=== PATIENT | female | born 2000 | race Caucasian/White ===

== ENCOUNTER 2019-01-08 00:53 | Emergency (ER) | payer OTHER ==
--- NOTE | 2019-01-08 02:32 | XRAY Report ---
Reason: foosh Procedure Date: 01/08/2019 Accession Number: [id number] / [id number] Procedure: XR - Wrist 4 View RT CPT Code: FULL RESULT: EXAM: RIGHT WRIST RADIOGRAPHY EXAM DATE: 01/08/2019 02:19 AM. CLINICAL HISTORY: COMPARISON: None. TECHNIQUE: 3 views. FINDINGS: Bones: Normal. No fractures or bone lesions. Joints: Normal. No subluxations. Soft Tissues: Normal. No soft tissue swelling. IMPRESSION: Normal wrist radiography. [facility]
--- NOTE | 2019-01-08 02:52 | ED Physician Documentation ---
PD HPI UPPER EXT INJURY - Stated complaint Stated Complaint: GLF/R WRIST PX - Chief complaint Chief Complaint: Ext Problem - History obtained from History obtained from: Patient - History of Present Illness Location: Right, Wrist Type of injury: Fall Where injury occurred: Home Timing - onset: Today Timing - duration: Minutes Timing - details: Abrupt onset, Still present Improved by: Rest, Immobilization Worsened by: Moving, Palpating Associated symptoms: No: Weakness, Numbness, Swelling Contributing factors: No: Anticoagulated Similar symptoms before: Has not had sx before Recently seen: Not recently seen - Additonal information Additional information: 18 y/o female has fallen onto her right hand after slipping in the snow. She is complaining of pain in the wrist over the dorsal surface. She has good ROM of the wrist with pain. Review of Systems Constitutional: denies: Fever Respiratory: denies: Cough GI: denies: Vomiting Skin: denies: Rash Musculoskeletal: reports: Extremity pain, Joint pain PD PAST MEDICAL HISTORY - Past Medical History Past Medical History: No - Past Surgical History Past Surgical History: No - Present Medications Home Medications: Ambulatory Orders Medication Instructions Recorded Confirmed No Known Home Medications 01/08/19 01/08/19 - Allergies Allergies/Adverse Reactions: Allergies Allergy/AdvReac Type Severity Reaction Status Date / Time No Known Drug Allergies Allergy Verified 01/08/19 01:09 - Social History Does the pt smoke?: No Smoking Status: Never smoker Does the pt drink ETOH?: No Does the pt have substance abuse?: No - Immunizations Immunizations are current?: Yes - POLST Patient has POLST: No PD ED PE NORMAL - Vitals Vital signs reviewed: Yes (hypertensive) - General General: Alert and oriented X 3, No acute distress, Well developed/nourished - HEENT HEENT: Atraumatic, PERRL, EOMI - Respiratory Respiratory: No respiratory distress - Derm Derm: Normal color, Warm and dry, No rash - Extremities Extremities: No deformity, No edema, Other (There is tenderness to the dorsal aspect of the right wrist. There is not tenderness to the anatomic snuff box. There is fair ROM with pain and the distal n/v is intact. ) - Neuro Neuro: Alert and oriented X 3, poultry helper 2-12 intact, No motor deficit, No sensory deficit, Normal speech Eye Opening: Spontaneous Motor: Obeys Commands Verbal: Oriented GCS Score: 15 - Psych Psych: Normal mood, Normal affect Results - Vitals Vitals: Vital Signs - 24 hr 01/08/19 01/08/19 01:00 02:57 Temperature 36.4 C L 36.4 C L Heart Rate 81 77 Respiratory 18 14 Rate Blood Pressure 130/81 H 115/72 O2 Saturation 100 100 Oxygen O2 Source Room air - Rads (name of study) wrist Radiology: Prelim report reviewed (Impression: Normal wrist radiography.), EMP read indepedently, See rad report Procedures - Splint (location) right wrist Splint applied by: Tech Type of splint: Fiberglass, Volar cock up Other: Patient tolerated well, No complications, Neurovascular intact, Good alignment PD MEDICAL DECISION MAKING - ED course Complexity details: reviewed results, re-evaluated patient, considered differential, d/w patient, d/w family ED course: 18-year-old female with a fall on an outstretched hand has a negative x-ray she is diagnosed with a sprain placed into a splint. She is instructed to wear the splint from anywhere from 2 days to 2 weeks Departure - Departure Disposition: 01 Home, Self Care Clinical Impression: Right wrist sprain Qualifiers: Encounter type: initial encounter Qualified Code(s): S63.501A - Unspecified sprain of right wrist, initial encounter Condition: Stable Instructions: ED Sprain Wrist Follow-Up: [facility] Fernandez [Provider Group] Discharge Date/Time: 01/08/19 03:01
[2019-01-08 02:58] VITALS: BP 115/72
== END 2019-01-08 03:01 | disposition home or self-care (01) ==
LOC: ED 00:53
DX: S63.501A Unspecified sprain of right wrist, initial encounter (principal); W00.0XXA Fall on same level due to ice and snow, initial encounter; Y92.009 Unspecified place in unspecified non-institutional (private) residence as the place of occurrence of the external cause
CPT/HCPCS: 99283

== ENCOUNTER 2019-03-07 18:00 | Emergency (ER) | payer OTHER ==
[2019-03-07 18:08] VITALS: BP 134/75
[2019-03-07] MEDS ORDERED: AMOXICILLIN 250 MG CAPSULE PO STA (18:48)
[2019-03-07] MEDS ORDERED: CHERRY SYRUP 10 ML UDC PO ONE (18:48)
[2019-03-07] MEDS ORDERED: DEXAMETHASONE 10 MG/ML VIAL PO STA (18:48)
--- NOTE | 2019-03-07 18:50 | ED Physician Documentation ---
History of Present Illness - Stated complaint Stated Complaint: SORE THROAT/L EAR PX - Chief complaint Chief Complaint: General - History obtained from History obtained from: Patient - History of Present Illness Timing: Other (5 days of severe left ear pain and popping, 2 days of sore throat. She has had some low-grade fevers. She is congested but denies cough. No possibility of .) Review of Systems Constitutional: reports: Fever. denies: Chills, Myalgias, Fatigue Ears: reports: Loss of hearing, Ear pain Nose: reports: Rhinorrhea / runny nose Throat: reports: Sore throat PD PAST MEDICAL HISTORY - Past Surgical History Past Surgical History: No - Present Medications Home Medications: Ambulatory Orders Medication Instructions Recorded Confirmed Amoxicillin 500 mg PO TID #30 capsule 03/07/19 - Allergies Allergies/Adverse Reactions: Allergies Allergy/AdvReac Type Severity Reaction Status Date / Time No Known Drug Allergies Allergy Verified 01/08/19 01:09 - Social History Does the pt smoke?: No Smoking Status: Never smoker Does the pt drink ETOH?: No Does the pt have substance abuse?: No - Immunizations Immunizations are current?: Yes - POLST Patient has POLST: No PD ED PE NORMAL - Vitals Vital signs reviewed: Yes - General General: Alert and oriented X 3, No acute distress - HEENT HEENT: Other (Moderate left otitis media, slightly muffled voice but oropharynx appears normal with slightly red tonsillar pillars but no swelling or exudate or asymmetry. No anterior cervical adenopathy. Supple neck.) - Derm Derm: No rash - Neuro Neuro: Alert and oriented X 3, Normal speech Results - Vitals Vitals: Vital Signs - 24 hr 03/07/19 18:04 Temperature 36.6 C Heart Rate 108 H Respiratory 16 Rate Blood Pressure 134/75 H O2 Saturation 98 Oxygen O2 Source Room air - Labs Labs: Laboratory Tests 03/07/19 18:25 Group A Strep Rapid Negative Departure - Departure Disposition: 01 Home, Self Care Clinical Impression: Viral pharyngitis LOM (left otitis media) Qualifiers: Otitis media type: suppurative Chronicity: acute Recurrence: non-recurrent Spontaneous tympanic membrane rupture: without spontaneous rupture Qualified Code(s): H66.002 - Acute suppurative otitis media without spontaneous rupture of ear drum, left ear Condition: Good Record reviewed to determine appropriate education?: Yes Instructions: ED Otitis Media Acute Adult, ED Pharyngitis Viral Report Pending Prescriptions: Amoxicillin 500 mg PO TID #30 capsule Comments: Ibuprofen as needed for pain. [place] Return for new or worsening symptoms. Your blood pressure was elevated today on check into the emergency department. This does not mean that you have hypertension, it is a common phenomenon to come to the emergency department and have elevated blood pressure. I recommend that you see your primary care physician within the week to have it rechecked when you are feeling better. Forms: Activity restrictions
== END 2019-03-07 19:09 | disposition home or self-care (01) ==
LOC: ED 18:00
DX: J02.8 Acute pharyngitis due to other specified organisms (principal); B97.89 Other viral agents as the cause of diseases classified elsewhere; H66.002 Acute suppurative otitis media without spontaneous rupture of ear drum, left ear; R03.0 Elevated blood-pressure reading, without diagnosis of hypertension
CPT/HCPCS: 87070; 87430; 99283; A9270

== ENCOUNTER 2021-09-24 22:13 | Emergency (ER) | payer OTHER ==
[2021-09-24 22:23] VITALS: BP 144/80
--- NOTE | 2021-09-24 22:53 | ED Physician Documentation ---
PD HPI HEENT - Stated complaint Stated Complaint: CHEST PX, COUGH - Chief complaint Chief Complaint: Resp - History obtained from History obtained from: Patient - Additional information Additional information: Patient comes emergency department chief complaint of chest tightness and cough. She states she had a cold about 3 weeks ago and that the symptoms dragged on for quite a while. She states that seem like it was getting better but then several nights ago, she had a brief low-grade fever and then cough throughout the night. She states that her chest felt tight at that time. Patient states that ever since, she feels like she has not been able to take a deep breath. She still coughing intermittently. She states it just feels tight around her sternal area and that it feels tighter when she tries to take a deep breath. 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 No fevers or chills since the isolated subjective fever 3 nights ago. Patient is otherwise healthy. She is not a smoker. Patient is immunized for Covid. Review of Systems Ten Systems: 10 systems reviewed and negative Constitutional: reports: Reviewed and negative Eyes: reports: Reviewed and negative Ears: reports: Reviewed and negative Nose: reports: Reviewed and negative Throat: reports: Reviewed and negative Cardiac: reports: Chest pain / pressure (Tightness) Respiratory: reports: Cough GI: reports: Reviewed and negative : reports: Reviewed and negative Skin: reports: Reviewed and negative Musculoskeletal: reports: Reviewed and negative Neurologic: reports: Reviewed and negative Psychiatric: reports: Reviewed and negative Endocrine: reports: Reviewed and negative Immunocompromised: reports: Reviewed and negative PD PAST MEDICAL HISTORY - Past Medical History Past Medical History: Yes Endocrine/Autoimmune: Other Other Past Medical History: Idiopathic Angioedema - Past Surgical History Past Surgical History: No - Present Medications Home Medications: Ambulatory Orders Medication Instructions Recorded Confirmed Amoxicillin 500 mg PO TID #30 capsule 03/07/19 Acetaminophen/Cod 300/30 [Tylenol 2 each PO Q4-6H PRN #12 tablet 09/24/21 #3] - Allergies Allergies/Adverse Reactions: Allergies Allergy/AdvReac Type Severity Reaction Status Date / Time No Known Drug Allergies Allergy Verified 09/24/21 22:23 - Social History Does the pt smoke?: No Smoking Status: Never smoker Does the pt drink ETOH?: No Does the pt have substance abuse?: No - Immunizations Immunizations are current?: Yes - POLST Patient has POLST: No PD ED PE NORMAL - Vitals Vital signs reviewed: Yes - General General: Alert and oriented X 3, No acute distress, Well developed/nourished - HEENT HEENT: Atraumatic, PERRL, EOMI, Moist mucous membranes - Neck Neck: Supple, no meningeal sign - Cardiac Cardiac: RRR, No murmur, Strong equal pulses - Respiratory Respiratory: No respiratory distress, Clear bilaterally - Abdomen Abdomen: Soft, Non tender, Non distended - Derm Derm: Normal color, Warm and dry, No rash - Extremities Extremities: No deformity, No edema - Neuro Neuro: Alert and oriented X 3, rooms director 2-12 intact, Normal speech, Other (Grossly normal) - Psych Psych: Normal mood, Normal affect Results - Vitals Vitals: Vital Signs - 24 hr 09/24/21 22:16 Temperature 36.4 C L Heart Rate 100 Respiratory 14 Rate Blood Pressure 144/80 H O2 Saturation 100 Oxygen O2 Source Room air PD MEDICAL DECISION MAKING - ED course Complexity details: considered differential, d/w patient ED course: The patient's lungs were very clear and she was in no respiratory distress whatsoever. She did not have a fever in the emergency department and her oxygen saturation was 100% on room air. I discussed with the patient that she most likely has a viral illness and may be some tightness of the chest wall musculature. She has been given a dose of cough medicine here. We have discussed that with improvement in cough, her chest wall tightness will likely subside. We have discussed f/u as needed. Departure - Departure Disposition: 01 Home, Self Care Clinical Impression: Upper respiratory infection Qualifiers: URI type: unspecified viral URI Qualified Code(s): J06.9 - Acute upper respiratory infection, unspecified Condition: Stable Instructions: ED Viral Syndrome Prescriptions: Acetaminophen/Cod 300/30 [Tylenol #3] 2 each PO Q4-6H PRN #12 tablet PRN Reason: Cough Comments: You most likely have one of the many upper respiratory viruses that go around this time a year, and your chest wall is probably tight and causing the feeling of not being able to take a deep breath. Your lungs are clear and your oxygen is great. The prescription for your cough medicine and medicine to relax your chest wall has been sent electronically to [facility] in [place]. Please follow-up with your primary doctor as needed.
[2021-09-24] MEDS: guaiFENesin/CODEINE 5 ML UDC PO STA (23:02)
== END 2021-09-24 23:43 | disposition home or self-care (01) ==
LOC: ED 22:13
DX: J06.9 Acute upper respiratory infection, unspecified (principal); B97.89 Other viral agents as the cause of diseases classified elsewhere
CPT/HCPCS: 99282; 99283; A9270